=== PATIENT | female | born 1980 | race African-American/Black ===

== ENCOUNTER 2016-12-12 18:00 | Inpatient (IN) | payer OTHER ==
--- NOTE | ~2016-12-12 | HP ---
Unit #: [id number] #: [id number] Patient: NINI BARR [id number] [place] [address] [id number] MR#: [id number] NAME: NINI BARR ROOM: P185 Age: 35 Sex: F Admission Date: 12/12/2016 : 1980 Attending Physician: Gurdeep Vanessa M.D. Admitting Physician: Gurdeep Vanessa M.D. Primary Care Physician: Generic Doctor Not In System HISTORY AND PHYSICAL HISTORY OF PRESENT ILLNESS Nini is a 35 year old admitted to [facility] because of her illicit drug use which includes crack cocaine. PAST MEDICAL HISTORY History of illicit drug use to include crack cocaine. PAST SURGICAL HISTORY D and C. ALLERGIES Penicillin (rash). SOCIAL HISTORY Smokes less than 1/2 pack per day. Denies alcohol. Admits to a long history of illicit substance abuse to include crack. FAMILY HISTORY Medically noncontributory. REVIEW OF SYSTEMS CONSTITUTIONAL: No fever or chills. HEENT: Denies any sore throat, ear pain or runny nose. CARDIOVASCULAR: Denies chest pain, irregular heart rhythm or palpitations. CHEST: Denies shortness of breath or cough. No hemoptysis. GASTROINTESTINAL: Denies nausea, vomiting, diarrhea or chronic constipation. ENDOCRINE: Denies history of increased thirst or urination. No recent significant weight loss or gain. GENITOURINARY: Denies dysuria, frequency, or hematuria. SKIN: Denies any rashes. HEMATOLOGIC: Denies history of increased bleeding or bruising. MUSCULOSKELETAL: Denies any hot, swollen joints. No generalized muscle pain. NEUROLOGIC: Denies problems with vision or speech. No frequent, severe headaches. No numbness, tingling or weakness in any extremities. Denies loss of bladder or bowel control. CURRENT MEDICATIONS Detox protocol. PHYSICAL EXAMINATION GENERAL: Alert, well-nourished, in no apparent distress. Unit #: [id number] #: [id number] Patient: NINI BARR VITAL SIGNS: Blood pressure 128/74, heart rate 86, respirations 16, temperature 98.6. WEIGHT: 162. HEIGHT: 5 feet 7 inches. SKIN: Warm and dry without rash or lesion. HEENT: Normocephalic. TMs not viewed. Oral and nasal passages clear. Conjunctivae clear. PERRLA. EOMs intact. NECK: Supple without lymphadenopathy or thyromegaly. HEART: Regular rate and rhythm without murmur. LUNGS: Clear. ABDOMEN: Soft, nontender. : Not done. EXTREMITIES: No evidence of cyanosis, clubbing or edema. Moves all without focal deficit. NEUROLOGICAL: Grossly within normal limits. Cranial Nerves: II: Visual are intact. III, IV AND : Extraocular movements are intact. Pupils are equal, round and reactive to light. V: Facial sensation is grossly normal. VII: Facial movements and expression are normal. VIII: Auditory acuity grossly intact. IX, X: Uvula is midline. Phonation is normal. XI: Patient shrugs shoulders and turns head normally. XII: Tongue protrudes in the midline. Sensory and Motor Function: Sensory and motor sensation is grossly normal. Motor: moves all extremities well. Coordination: Gait is normal. Deep Tendon Reflexes: Intact. IMPRESSION Psychiatric admission. RECOMMENDATIONS PSYCHIATRIC: Per psychiatrist. MEDICAL: See no contraindications to participate in facility's activities. MEDICAL PROGNOSIS Good. MEDICAL CONDITION Stable. Dictated by... Blanca Argueta P.A.-C. for Sirisha Sanchez/shanae TD: 12/13/2016 21:00 JOB #: [id number] Unit #: [id number] #: [id number] Patient: NINI BARR HISTORY AND PHYSICAL X Blanca Argueta HISTORY AND PHYSICAL
--- NOTE | ~2016-12-12 | DS ---
Unit #: [id number] #: [id number] Patient: NINI BARR [id number] [place] [address] [id number] MR#: [id number] NAME: NINI BARR ROOM: P185 Age: 35 Sex: F Admission Date: 12/12/2016 : 1980 Discharge Date: 12/14/2016 Attending Physician: Gurdeep Vanessa M.D. Primary Care Physician: Generic Doctor Not In System DISCHARGE SUMMARY REASON FOR ADMISSION Nini is a 35-year-old woman with increasing depression, hopelessness, and suicidal ideation due to ongoing crack use with the occasional use of illicit opiates. She reports multiple psychosocial stressors and is temporarily homeless. She was unable to contract for safety and was admitted for stabilization. DIAGNOSTIC STUDIES LABORATORY RESULTS: Beta-hCG was negative. CBC was within normal limits. CMP was within normal limits. RPR was nonreactive. HOSPITAL COURSE The patient was admitted and placed on suicide precautions. The opioid detox protocol was initiated, although she had minimal symptomatology Flagyl 500 mg b.i.d. was recommended by her emergency room provider for bacterial vaginosis, and this was continued. She started on Wellbutrin XL 150 mg daily for depression and PTSD and tolerated this medication with no adverse side effects. She participated minimally in psychotherapy groups and activities, but was able to contract for safety on the date of discharge with no further suicidal ideation, intent, or plan and was discharged in stable condition. DISCHARGE DIAGNOSES AXIS I: Major depression, recurrent; posttraumatic stress disorder, chronic; cocaine abuse; opioid abuse. AXIS II: No diagnosis. AXIS III: Bacterial vaginosis. AXIS IV: AXIS V: DISCHARGE INSTRUCTIONS Follow up with [facility] for medication management, psychotherapy, and chemical dependency treatment. DISCHARGE MEDICATIONS Wellbutrin XL 150 mg daily for depression, Flagyl 500 mg b.i.d. for further 6 days for bacterial vaginosis, and trazodone 50 mg at bedtime as needed for insomnia. CONDITION AT DISCHARGE Improved. Unit #: [id number] #: [id number] Patient: NINI ABRR PROGNOSIS Fair to good. DIET AND ACTIVITY Per primary care doctor. Dictated by... Gurdeep Vanessa M.D. [facility]/modl TD: 12/15/2016 00:11 JOB #: [id number] DISCHARGE SUMMARY X Gurdeep Vanessa MD DISCHARGE SUMMARY
--- NOTE | ~2016-12-12 | PA ---
Unit #: [id number] #: [id number] Patient: TANG ARGUELLES [id number] [facility] [address] [place] [address] [id number] I MR#: [id number] NAME: TANG ARGUELLES ROOM: P185 Age: 35 Sex: F Admission Date: 12/12/2016 : 1980 Date of Assessment: 12/13/2016 Attending Physician: Gurdeep Vanessa M.D. Admitting Physician: Gurdeep Vanessa M.D. Primary Care Physician: Generic Doctor Not In System PSYCHIATRIC ASSESSMENT DATE OF SERVICE 12/13/2016. INFORMANTS The patient, reliable; OLOP, reliable; the patient's brother, reliable. CHIEF COMPLAINT Suicidal ideation. HISTORY OF PRESENT ILLNESS Ms. Arguelles is a 35-year-old woman, who reports she has been having increasing depression, hopelessness, and suicidal thoughts with increasing frequency and intensity. She is also using crack cocaine and occasionally heroin, but not enough to actively detox from one and all basis. Her children were taken in June due to issues with neglect and she is feeling hopeless and helpless. She was unable to contract for safety and was admitted for further assessment and stabilization. PAST PSYCHIATRIC HISTORY The patient has a history of one suicide attempt by overdose as a teenager. She has been hospitalized at [facility] in the past and previously was an outpatient at [facility] with diagnosis of depression and PTSD. She is not currently taking psychiatric medications. FAMILY PSYCHIATRIC HISTORY There is a family history of substance abuse in her mother and siblings. SOCIAL HISTORY The patient is a high-school graduate with 2 years of college. She is currently unemployed and temporary homeless, grieving the loss of her children due to legal custody. She reports occasionally engaging in illicit behavior to meet her daily needs. PAST MEDICAL HISTORY The patient complains of a vaginal discharge and was recently diagnosed with bacterial vaginosis, and prescribed Flagyl, but she has not started this medication yet. MEDICATIONS None currently. ALLERGIES Unit #: [id number] #: [id number] Patient: TANG ARGUELLES Penicillin. SUBSTANCE USE HISTORY As noted, the patient uses heroin occasionally and uses cocaine on a fairly frequent basis. MENTAL STATUS EXAMINATION The patient presented as a mildly disheveled woman, who appeared her stated age. She was polite and cooperative with the examination. Vital signs were temperature 98.4, blood pressure 113/71, respirations 18, and pulse 91. Her speech was spontaneous and easily understood. Musculoskeletal examination was calm. Her mood was depressed with a congruent affect. She was alert and fully oriented. Her memory and concentration were fair to good. Her thought processes were goal directed with no active psychosis. She reported suicidal ideation with no specific plan or intent, but could not contract for safety outside of the hospital. Insight and judgment, fair. Fund of knowledge and abstraction, intact. ASSETS AND LIABILITIES The patient knows local resources and presents voluntarily for treatment. Liabilities include temporary homelessness, unemployment, and loss of child custody. ADMITTING DIAGNOSES AXIS I: Major depression, recurrent, F33.2; posttraumatic stress disorder, chronic; cocaine abuse; opioid abuse. AXIS II: No diagnosis. AXIS III: Bacterial vaginosis. AXIS IV: AXIS V: PSYCHIATRIC PLAN The patient was admitted and placed on suicide precautions. We will start the opioid detox protocol, although the patient denies any active detox symptoms at this time. We will also restart Flagyl was recommended by her emergency room provider and we will start Wellbutrin XL 150 mg daily for depression and PTSD. She will enroll in dual diagnosis groups and activities. TREATMENT GOALS Resolution of SI, improvement in insight, and improvement in coping skills. DISCHARGE PLANNING Follow up with community mental health and primary care physician. ESTIMATED LENGTH OF STAY 5 days. Dictated by... Gurdeep Vanessa M.D. [facility]/cherie TD: 12/14/2016 06:02 JOB #: [id number] Unit #: [id number] #: [id number] Patient: TANG ARGUELLES PSYCHIATRIC ASSESSMENT X Gurdeep Vanessa MD X PSYCHIATRIC ASSESSMENT
[2016-12-13 12:33] LABS: BASOPHIL% 0.6 % (0-2.5); EOSINOPHIL# 0.2 X10e3 (0-0.7); EOSINOPHIL% 2.7 % (0.0-7.0); HEMOGLOBIN 13.4 gm/dL (12.0-16.0); LYMPHOCYTE# 2.4 X10e3 (1.0-3.5); LYMPHOCYTE% 43.2 % (17.0-45.0); MEAN CELL VOLUME 90.7 FL (83-96); MEAN CORPUSCULAR HEMOGLOBIN 28.9 PG (28-34); MEAN CORPUSCULAR HGB CONC 31.9 g/dL (30-36); MEAN PLATELET VOLUME 9.5 FL (6.5-11.5); MONOCYTE# 0.6 X10e3 (0-1.0); MONOCYTE% 9.9 % (3.0-12.0); NEUTROPHIL# 2.5 X10e3 (1.5-7.1); NEUTROPHIL% 43.6 % (40-75); PLATELET COUNT 212 X10e3 (140-420); RED BLOOD COUNT 4.63 X10e (3.90-5.30); RED CELL DISTRIBUTION WIDTH 13.8 % (11.0-15.5); WHITE BLOOD COUNT 5.6 X10e3 (4.0-10.5)
[2016-12-13 12:41] LABS: DIFF IND NO
[2016-12-13 12:45] LABS: ALBUMIN SERUM 3.9 g/dL (3.5-5.0); ALKALINE PHOSPHATASE 52 U/L (32-92); ALT (SGPT) 15 U/L (10-40); AST (SGOT) 23 U/L (10-42); BILIRUBIN,TOTAL 0.9 mg/dL (0.2-2.0); BLOOD UREA NITROGEN 16 mg/dL (9-23); CALCIUM SERUM 9.6 mg/dL (8.4-10.2); CARBON DIOXIDE 29 mmol/L (22-31); CHLORIDE 103 mmol/L (100-111); GLOM FILT RATE Estimated ABOVE60 mL/min (>60); GLUCOSE FASTING 85 mg/dL (70-110); POTASSIUM 3.8 mmol/L (3.5-5.1); PROTEIN TOTAL SERUM 6.5 g/dL (6.0-8.3); SODIUM 140 mmol/L (135-145)
== END 2016-12-14 13:00 | disposition home or self-care (01) | DRG 885 ==
LOC: P1E 18:00
PROVIDERS: Psychiatry & Neurology Psychiatry
PROC: HZ2ZZZZ Detoxification Services for Substance Abuse Treatment (ICD-10-PCS; principal; 2016-12-12)
DX: F33.2 Major depressive disorder, recurrent severe without psychotic features (principal); F11.10 Opioid abuse, uncomplicated; F43.12 Post-traumatic stress disorder, chronic; F14.10 Cocaine abuse, uncomplicated; N76.0 Acute vaginitis; Z88.0 Allergy status to penicillin
CPT/HCPCS: 80053; 84703; 85025; 86592